=== PATIENT | female | born 1990 | race Caucasian/White ===

== ENCOUNTER 2016-11-16 09:09 | Emergency (ER) | payer MEDICAID ==
[~2016-11-16] VITALS: Ht 157.5 cm; Wt 63.6 kg
[~2016-11-16 09:09] MED LIST: AMOXICILLIN 50500 MG PO; BACTRIM DS 8001 TAB PO; CEFTIN250 MG PO; CIPRO 500MG TA500 MG PO; FLINTSTONES1 CTB; IMPLANON68 MG ID; MOTRIN 600600 MG/TAB PO; NO HOME MEDICATIONS; NORCO 325 MG-51 TAB PO; PEN-VEE K500 MG PO; PERCOCET 325 MG1 TA2 PO; PHENERGAN 25 TA25 MG PO; PRENATAL1 TA1 PO; PYRIDIUM200 M1 PO; VOLTAREN 75 DR75 MG PO
[2016-11-16 09:12] VITALS: TEMP 97.5
[2016-11-16 10:53] LABS: BASO % 0.6 % (0.0-2.0); EOS # 0.2 (0.0-0.7); EOS % 2.5 % (0-4.0); GRAN # 4.8 (1.4-6.5); GRAN % 69.4 % (42.2-75.2); HEMATOCRIT 44.7 % (37.0-47.0); HEMOGLOBIN 15.2 g/dl (12.5-16.0); LYMPH # 1.3 (1.2-3.4); LYMPH % 18.1 % (20.0-51.0); MEAN CELL VOLUME 92 fl (80.0-100.0); MEAN CORPUSCULAR HEMOGLOBIN 31 pg (27.0-31.0); MEAN CORPUSCULAR HGB CONC 34 g/dl (33.0-37.0); MEAN PLATELET VOLUME 9.3 fl (7.4-10.4); MONO # 0.6 (0.1-0.6); MONO % 9.1 % (1.7-9.3); PLATELET COUNT 303 K/mm3 (130-400); RED BLOOD COUNT 4.88 M/mm3 (4.10-5.30); REDCELL DISTRIBUTION WIDTH-CV 11.9 % (11.5-14.5); WHITE BLOOD COUNT 6.9 K/mm3 (4.8-10.8)
[2016-11-16 11:01] LABS: ADJUSTED CALCIUM 9.5 mg/dL (8.4-10.2); BILIRUBIN,TOTAL 0.7 mg/dL (0.0-1.0); CALCIUM 10.3 mg/dL (8.4-10.2); CREATININE, serum 0.69 mg/dL (0.52-1.25); TOTAL PROTEIN 8.7 gm/dL (6.4-8.2)
[2016-11-16 11:52] LABS: PH 7 (5-8); SQUAMOUS EPITHELIAL 0-2 /hpf; URINE APPEARANCE Hazy; URINE BACTERIA Rare /hpf; URINE BILIRUBIN Negative (NEGATIVE); URINE BLOOD Negative (NEGATIVE); URINE COLOR Yellow; URINE GLUCOSE Negative (NEGATIVE); URINE KETONE Negative (NEGATIVE); URINE RBC 0-2 /hpf; URINE UROBILINOGEN Negative (NEGATIVE)
[2016-11-16 12:33] VITALS: BP 110/75; PULSE 72
== END 2016-11-16 12:34 | disposition home or self-care (01) ==
LOC: COL.ER 09:09
PROVIDERS: Physician Assistant
DX: R55 Syncope and collapse (principal); F17.210 Nicotine dependence, cigarettes, uncomplicated
CPT/HCPCS: J7030

== ENCOUNTER 2017-06-23 03:29 | Emergency (ER) | payer MEDICAID ==
[~2017-06-23] VITALS: Ht 157.5 cm; Wt 69.5 kg
[2017-06-23 03:31] VITALS: TEMP 97.8
[2017-06-23 04:36] VITALS: BP 137/70
[2017-06-23 05:35] VITALS: PULSE 77
== END 2017-06-23 05:41 | disposition home or self-care (01) ==
LOC: COL.ER 03:29
DX: R51 Headache (principal)
CPT/HCPCS: J0780; J1200; J1885; J3475; J7030

== ENCOUNTER 2017-09-16 22:02 | Emergency (ER) | payer MEDICAID ==
[~2017-09-16] VITALS: Ht 157.5 cm; Wt 63.6 kg
[2017-09-16 22:05] VITALS: TEMP 98.8
[2017-09-16 23:37] LABS: ADJUSTED CALCIUM 8.9 mg/dL (8.4-10.2); ALANINE AMINOTRANSFERASE 29 U/L (9-52); ALBUMIN 4.8 gm/dL (3.5-5.0); ALKALINE PHOSPHATASE 48 U/L (50-136); ANION GAP 12 mmol/L (7-16); BILIRUBIN,TOTAL 0.8 mg/dL (0.0-1.0); BLOOD UREA NITROGEN 14 mg/dL (7-17); CALCIUM 9.5 mg/dL (8.4-10.2); CARBON DIOXIDE 23 mmol/L (22-30); CHLORIDE 103 mmol/L (98-107); CREATININE, serum 0.59 mg/dL (0.52-1.25); GLUCOSE 124 mg/dL (74-106); LIPASE 57 U/L (23-300); POTASSIUM 4.3 mmol/L (3.4-5.0); SODIUM 139 mmol/L (137-145); TOTAL PROTEIN 7.7 gm/dL (6.4-8.2)
[2017-09-16 23:38] LABS: C-REACTIVE PROTEIN < 0.5 mg/dL (0.0-0.9)
[2017-09-17 00:02] LABS: COLLECTION METHOD CLEAN CATCH
[2017-09-17 00:13] LABS: BASO % 0.2 % (0.0-2.0); EOS % 0.2 % (0-4.0); GRAN % 88.4 % (42.2-75.2); HEMATOCRIT 37.1 % (37.0-47.0); HEMOGLOBIN 12.6 g/dl (12.5-16.0); LYMPH # 0.4 (1.2-3.4); LYMPH % 4.3 % (20.0-51.0); MEAN CELL VOLUME 92 fl (80.0-100.0); MEAN CORPUSCULAR HEMOGLOBIN 31 pg (27.0-31.0); MEAN CORPUSCULAR HGB CONC 34 g/dl (33.0-37.0); MEAN PLATELET VOLUME 9.1 fl (7.4-10.4); MONO # 0.7 (0.1-0.6); MONO % 6.6 % (1.7-9.3); PLATELET COUNT 289 K/mm3 (130-400); RED BLOOD COUNT 4.02 M/mm3 (4.10-5.30); WHITE BLOOD COUNT 10.2 K/mm3 (4.8-10.8)
[2017-09-17 00:14] LABS: PH 6 (5-8); URINE APPEARANCE Hazy; URINE COLOR Yellow; URINE PROTEIN(semi-quant) 1+ (NEGATIVE)
[2017-09-17 00:15] LABS: URINE BILIRUBIN Negative (NEGATIVE); URINE BLOOD Negative (NEGATIVE); URINE GLUCOSE Negative (NEGATIVE); URINE KETONE Negative (NEGATIVE); URINE LEUKOCYTE ESTERASE Negative (NEGATIVE); URINE UROBILINOGEN Negative (NEGATIVE)
[2017-09-17 00:18] LABS: MUCOUS Present /lpf; SQUAMOUS EPITHELIAL 0-2 /hpf; URINE BACTERIA None Seen /hpf; URINE RBC 0-2 /hpf; URINE WBC 0-2 /hpf
[2017-09-17] MEDS ORDERED: ZOFRAN ODT4 MG PO (03:04)
[2017-09-17 03:20] VITALS: BP 108/61; PULSE 90
== END 2017-09-17 03:20 | disposition home or self-care (01) ==
LOC: COL.ER 22:02
PROVIDERS: Emergency Medicine
DX: R10.13 Epigastric pain (principal); R11.2 Nausea with vomiting, unspecified
CPT/HCPCS: J1170; J2405; J2765; J7030; J7050; Q9967

== ENCOUNTER 2017-10-10 09:01 | Emergency (ER) | payer MEDICAID ==
[~2017-10-10] VITALS: Ht 157.5 cm; Wt 63.6 kg
[~2017-10-10 09:01] MED LIST changes: +ZOFRAN ODT4 MG PO
[2017-10-10 09:03] VITALS: BP 163/106; PULSE 78; TEMP 98.2
[2017-10-10] MEDS ORDERED: PEN-VEE K500 MG PO (09:22)
[2017-10-10] MEDS ORDERED: NORCO 325 MG-51 TAB PO (09:22)
== END 2017-10-10 09:33 | disposition home or self-care (01) ==
LOC: COL.ER 09:01
DX: K08.89 Other specified disorders of teeth and supporting structures (principal); Z87.891 Personal history of nicotine dependence

== ENCOUNTER 2017-11-12 15:33 | Emergency (ER) | payer MEDICAID ==
[~2017-11-12] VITALS: Ht 157.5 cm; Wt 68.2 kg
[2017-11-12 15:38] VITALS: BP 133/90; PULSE 88; TEMP 99
[2017-11-12 16:28] LABS: COLLECTION METHOD CLEAN CATCH
[2017-11-12 16:42] LABS: MUCOUS Present /lpf; PH 7 (5-8); SQUAMOUS EPITHELIAL 0-2 /hpf; URINE APPEARANCE Cloudy; URINE BACTERIA Occasional /hpf; URINE BILIRUBIN Negative (NEGATIVE); URINE BLOOD 2+ (NEGATIVE); URINE COLOR Yellow; URINE GLUCOSE Negative (NEGATIVE); URINE KETONE Negative (NEGATIVE); URINE LEUKOCYTE ESTERASE 3+ (NEGATIVE); URINE NITRATE Negative (NEGATIVE); URINE PROTEIN(semi-quant) 1+ (NEGATIVE); URINE UROBILINOGEN Negative (NEGATIVE)
[2017-11-12] MEDS ORDERED: CEPHALEXIN500 M1 PO (17:00)
== END 2017-11-12 17:20 | disposition home or self-care (01) ==
LOC: COL.ER 15:33
PROVIDERS: Nurse Practitioner
DX: N12 Tubulo-interstitial nephritis, not specified as acute or chronic (principal); N39.0 Urinary tract infection, site not specified; Z84.1 Family history of disorders of kidney and ureter

== ENCOUNTER 2019-07-04 13:02 | Emergency (ER) | payer SELFPAY ==
[~2019-07-04] VITALS: Ht 157.5 cm; Wt 61.4 kg
[~2019-07-04 13:02] MED LIST changes: +CEPHALEXIN500 M1 PO
[2019-07-04 13:11] VITALS: BP 162/93; TEMP 98.7
[2019-07-04 13:45] LABS: BASO % 0.4 % (0.0-2.0); EOS # 0.2 (0.0-0.7); EOS % 1.6 % (0-4.0); GRAN % 55.2 % (42.2-75.2); HEMATOCRIT 39.3 % (37.0-47.0); HEMOGLOBIN 13.4 g/dl (12.5-16.0); LYMPH % 32.7 % (20.0-51.0); MEAN CELL VOLUME 91 fl (80.0-100.0); MEAN CORPUSCULAR HEMOGLOBIN 31 pg (27.0-31.0); MEAN CORPUSCULAR HGB CONC 34 g/dl (33.0-37.0); MEAN PLATELET VOLUME 9.2 fl (7.4-10.4); MONO # 0.9 (0.1-0.6); PLATELET COUNT 364 K/mm3 (130-400)
[2019-07-04 14:54] VITALS: PULSE 74
== END 2019-07-04 14:54 | disposition home or self-care (01) ==
LOC: COL.ER 13:02
PROVIDERS: Physician Assistant
DX: T38.5X5A Adverse effect of other estrogens and progestogens, initial encounter (principal); R51 Headache; F43.10 Post-traumatic stress disorder, unspecified; F41.9 Anxiety disorder, unspecified; Z87.891 Personal history of nicotine dependence

== ENCOUNTER 2021-04-17 09:44 | Emergency (ER) | payer OTHER ==
[~2021-04-17] VITALS: Ht 157.5 cm; Wt 66.8 kg
[2021-04-17 09:45] VITALS: TEMP 98.1
[2021-04-17 09:58] LABS: HEMATOCRIT 38.8 % (37.0-47.0); HEMOGLOBIN 13.3 g/dl (12.5-16.0); MEAN CELL VOLUME 94 fl (80.0-100.0); MEAN CORPUSCULAR HEMOGLOBIN 32 pg (27.0-31.0); MEAN CORPUSCULAR HGB CONC 34 g/dl (33.0-37.0); MEAN PLATELET VOLUME 9.5 fl (7.4-10.4); PLATELET COUNT 362 K/mm3 (130-400); RED BLOOD COUNT 4.11 M/mm3 (4.10-5.30); REDCELL DISTRIBUTION WIDTH-CV 11.9 % (11.5-14.5)
[2021-04-17 10:09] LABS: ALANINE AMINOTRANSFERASE 26 U/L (4-34); ALBUMIN 4.2 gm/dL (3.5-5.0); ALKALINE PHOSPHATASE 48 U/L (50-136); ANION GAP 6 mmol/L (7-16); AST,SGOT 37 U/L (15-37); BILIRUBIN,TOTAL 0.5 mg/dL (0.0-1.0); BLOOD UREA NITROGEN 12 mg/dL (7-17); CALCIUM 9.1 mg/dL (8.4-10.2); CARBON DIOXIDE 24 mmol/L (22-30); CHLORIDE 107 mmol/L (98-107); CREATININE, serum 0.71 (0.52-1.25); GLUCOSE 136 mg/dL (74-106); POTASSIUM 3.7 mmol/L (3.4-5.0); SODIUM 137 mmol/L (137-145); TOTAL PROTEIN 7.1 gm/dL (6.4-8.2)
[2021-04-17 10:25] LABS: ALCOHOL(ethanol),MEDICAL < 10 mg/dL
[2021-04-17 10:26] LABS: BASOPHIL 1 % (0-2); EOSINOPHIL 2 % (0-4); LYMPHOCYTE 32 % (20.0-51.0); MYELOCYTE 1 % (0-0); NEUTROPHILS 53 % (42.0-75.2); PLATELET ESTIMATE NORMAL (NORMAL)
[2021-04-17 11:20] VITALS: BP 103/71; PULSE 73
== END 2021-04-17 11:40 | disposition short-term general hospital (02) ==
LOC: COL.ER 09:44
PROVIDERS: Family Medicine
DX: S32.9XXA Fracture of unspecified parts of lumbosacral spine and pelvis, initial encounter for closed fracture (principal); S22.080A Wedge compression fracture of T11-T12 vertebra, initial encounter for closed fracture; S00.81XA Abrasion of other part of head, initial encounter; V03.10XA Pedestrian on foot injured in collision with car, pick-up truck or van in traffic accident, initial encounter
CPT/HCPCS: J2060; J3010; Q9967

== ENCOUNTER 2021-05-28 21:31 | Emergency (ER) | payer MEDICAID ==
[~2021-05-28] VITALS: Ht 157.5 cm; Wt 63.6 kg
[2021-05-28 21:39] VITALS: TEMP 97.3
[2021-05-28 22:26] LABS: BASO # 0.1 (0.0-0.2); BASO % 0.4 % (0.0-2.0); EOS # 0.1 (0.0-0.7); EOS % 0.6 % (0-4.0); GRAN # 10.1 (1.4-6.5); GRAN % 79.7 % (42.2-75.2); HEMOGLOBIN 11.9 g/dl (12.5-16.0); LYMPH # 1.8 (1.2-3.4); LYMPH % 13.8 % (20.0-51.0); MEAN CELL VOLUME 99 fl (80.0-100.0); MEAN CORPUSCULAR HEMOGLOBIN 32 pg (27.0-31.0); MEAN CORPUSCULAR HGB CONC 32 g/dl (33.0-37.0); MEAN PLATELET VOLUME 9.1 fl (7.4-10.4); MONO # 0.7 (0.1-0.6); MONO % 5.2 % (1.7-9.3); PLATELET COUNT 369 K/mm3 (130-400); RED BLOOD COUNT 3.74 M/mm3 (4.10-5.30); REDCELL DISTRIBUTION WIDTH-CV 12.7 % (11.5-14.5)
[2021-05-28 22:30] LABS: HEMATOCRIT 36.9 % (37.0-47.0)
[2021-05-28 22:39] LABS: ALBUMIN 4.3 gm/dL (3.5-5.0); BILIRUBIN,TOTAL 0.2 mg/dL (0.0-1.0); CALCIUM 9.2 mg/dL (8.4-10.2); CREATININE, serum 0.43 (0.52-1.25); TOTAL PROTEIN 7.7 gm/dL (6.4-8.2)
[2021-05-28 22:48] LABS: COLLECTION METHOD CLEAN CATCH
[2021-05-28 22:57] LABS: MUCOUS Present /lpf; PH 7 (5-8); SQUAMOUS EPITHELIAL 0-2 /hpf; URINE APPEARANCE Hazy; URINE BACTERIA None Seen /hpf; URINE BILIRUBIN Negative (NEGATIVE); URINE BLOOD Negative (NEGATIVE); URINE COLOR Yellow; URINE GLUCOSE Negative (NEGATIVE); URINE KETONE Negative (NEGATIVE); URINE LEUKOCYTE ESTERASE Negative (NEGATIVE); URINE NITRATE Negative (NEGATIVE); URINE PROTEIN(semi-quant) Negative (NEGATIVE); URINE RBC 0-2 /hpf; URINE UROBILINOGEN Negative (NEGATIVE)
[2021-05-29] MEDS ORDERED: ZOFRAN ODT4 MG PO ×2 (00:03)
[2021-05-29 00:16] VITALS: BP 106/61; PULSE 63
== END 2021-05-29 00:22 | disposition home or self-care (01) ==
LOC: COL.ER 21:31
PROVIDERS: Physician Assistant
DX: K52.9 Noninfective gastroenteritis and colitis, unspecified (principal); D64.9 Anemia, unspecified; D72.829 Elevated white blood cell count, unspecified; Z20.822 Contact with and (suspected) exposure to COVID-19; Z87.81 Personal history of (healed) traumatic fracture; Z87.891 Personal history of nicotine dependence
CPT/HCPCS: J2405; J7030

== ENCOUNTER 2021-06-24 13:09 | Emergency (ER) | payer MEDICAID ==
[~2021-06-24] VITALS: Ht 157.5 cm; Wt 65.9 kg
[2021-06-24 13:25] VITALS: TEMP 97.9
[2021-06-24 13:34] LABS: COLLECTION METHOD CLEAN CATCH
[2021-06-24] MEDS ORDERED: MIRALAX510G PO ×2 (13:37)
[2021-06-24] MEDS ORDERED: PHENERGAN 25 TA25 MG PO ×2 (13:37)
[2021-06-24] MEDS ORDERED: MAGCITRATE PO ×2 (13:37)
[2021-06-24] MEDS ORDERED: ZOFRAN 4MG T4 MG/TAB PO ×2 (13:37)
[2021-06-24] MEDS ORDERED: FLEET ENEM1 BOT/133 RC ×2 (13:37)
[2021-06-24] MEDS ORDERED: OMNICEF 300MG300 MG PO ×2 (13:37)
[2021-06-24 13:43] LABS: MUCOUS Present /lpf; PH 6 (5-8); SQUAMOUS EPITHELIAL 0-2 /hpf; URINE APPEARANCE Hazy; URINE BACTERIA None Seen /hpf; URINE BILIRUBIN Negative (NEGATIVE); URINE BLOOD Negative (NEGATIVE); URINE CALCIUM OXALATE CRYSTAL Present /hpf; URINE COLOR Yellow; URINE GLUCOSE Negative (NEGATIVE); URINE KETONE Negative (NEGATIVE); URINE LEUKOCYTE ESTERASE Negative (NEGATIVE); URINE NITRATE Negative (NEGATIVE); URINE PROTEIN(semi-quant) Negative (NEGATIVE); URINE UROBILINOGEN Negative (NEGATIVE)
[2021-06-24 14:42] LABS: BASO # 0.1 (0.0-0.2); BASO % 0.5 % (0.0-2.0); EOS # 0.1 (0.0-0.7); EOS % 0.5 % (0-4.0); GRAN # 10.1 (1.4-6.5); GRAN % 82.6 % (42.2-75.2); HEMATOCRIT 37.2 % (37.0-47.0); HEMOGLOBIN 12.5 g/dl (12.5-16.0); LYMPH # 1.3 (1.2-3.4); LYMPH % 10.6 % (20.0-51.0); MEAN CELL VOLUME 94 fl (80.0-100.0); MEAN CORPUSCULAR HEMOGLOBIN 32 pg (27.0-31.0); MEAN CORPUSCULAR HGB CONC 34 g/dl (33.0-37.0); MEAN PLATELET VOLUME 9.1 fl (7.4-10.4); MONO # 0.7 (0.1-0.6); MONO % 5.5 % (1.7-9.3); PLATELET COUNT 364 K/mm3 (130-400); RED BLOOD COUNT 3.97 M/mm3 (4.10-5.30); REDCELL DISTRIBUTION WIDTH-CV 12.1 % (11.5-14.5)
[2021-06-24 14:55] LABS: ALBUMIN 4.5 gm/dL (3.5-5.0); BILIRUBIN,TOTAL 0.3 mg/dL (0.0-1.0); CREATININE, serum 0.48 (0.52-1.25); POTASSIUM 4.2 mmol/L (3.4-5.0); TOTAL PROTEIN 7.7 gm/dL (6.4-8.2)
[2021-06-24] MEDS ORDERED: PHENERGAN12.5 MG/SU RC (15:32)
[2021-06-24 15:45] VITALS: BP 105/85; PULSE 68
== END 2021-06-24 15:47 | disposition home or self-care (01) ==
LOC: COL.ER 13:09
PROVIDERS: Family Medicine; Nurse Practitioner Primary Care
DX: E86.0 Dehydration (principal); R11.2 Nausea with vomiting, unspecified; Z32.02 Encounter for pregnancy test, result negative; Z87.891 Personal history of nicotine dependence
CPT/HCPCS: J2405; J7030

== ENCOUNTER 2021-08-29 17:20 | Emergency (ER) | payer MEDICAID ==
[~2021-08-29] VITALS: Ht 157.5 cm; Wt 59.1 kg
[~2021-08-29 17:20] MED LIST changes: +FLEET ENEM1 BOT/133 RC; +MAGCITRATE PO; +MIRALAX510G PO; +OMNICEF 300MG300 MG PO; +PHENERGAN12.5 MG/SU RC; +ZOFRAN 4MG T4 MG/TAB PO
[2021-08-29 17:32] VITALS: TEMP 97.4
[2021-08-29 19:57] VITALS: BP 114/70; PULSE 76
== END 2021-08-29 19:57 | disposition home or self-care (01) ==
LOC: COL.ER 17:20
DX: R51.9 Headache, unspecified (principal); R11.2 Nausea with vomiting, unspecified
CPT/HCPCS: J2405; J7030

== ENCOUNTER 2021-09-02 09:00 | Outpatient (RCR) | payer MEDICAID | END 2021-09-07 | disposition home or self-care (01) | LOC: WSPT | DX: Z98.890 Other specified postprocedural states (principal) ==

== ENCOUNTER 2021-10-01 09:00 | Outpatient (RCR) | payer MEDICAID | END 2021-10-10 | disposition still patient (30) | LOC: WSPT | DX: Z98.890 Other specified postprocedural states (principal) ==

== ENCOUNTER 2021-11-06 08:59 | Outpatient (RCR) | payer MEDICAID | END 2021-11-10 | disposition home or self-care (01) | LOC: WSPT | DX: Z98.890 Other specified postprocedural states (principal) ==

== ENCOUNTER 2021-11-25 13:30 | Outpatient (RCR) | payer MEDICAID | END 2021-12-08 | disposition home or self-care (01) | LOC: WSC | DX: Z98.890 Other specified postprocedural states (principal) ==

== ENCOUNTER 2021-12-16 09:00 | Outpatient (RCR) | payer MEDICAID | END 2021-12-18 13:52 | disposition home or self-care (01) | LOC: WSPT 09:00 | DX: Z98.890 Other specified postprocedural states (principal) ==